=== PATIENT | female | born 1955 | race Caucasian/White ===

== ENCOUNTER 2020-09-28 07:13 | Outpatient (CLI) | payer MEDICARE ==
[2020-09-28 16:19] LABS: Bilirubin Neg (Negative); Blood, Urine Negative (Negative); Clarity Clear (Clear); Glucose, Urine (Dipstick) Normal (Negative); Ketone, Urine Negative (Negative); Leukocyte Negative (Negative); Nitrite Negative (Negative); Protein, Urine (Dipstick) Negative (Neg-Trace); Urobilinogen Normal mg/dL (Less than 2)
[2020-09-28 16:21] LABS: #Basophils 0.1 10x3/uL (0.0-0.2); #Eosinphils 0.2 10x3/uL (0.0-0.5); #Monocytes 0.7 10x3/uL (0.0-1.1); %Basophils 0.9 % (0.0-2.0); %Eosinophils 2.6 % (0.0-6.0); %Lymphocytes 28.2 % (18.0-47.0); %Monocytes 10.3 % (0.0-10.0); %Neutrophils 57.9 % (40.0-75.0); Hemoglobin 12.7 g/dL (12.0-16.0); Mean Corpuscular HGB CONC 32.5 G/DL (32.0-36.0); Mean Corpuscular Hemoglobin 30.2 PG (27.0-33.0); Mean Corpuscular Volume 92.9 fl (80.0-100.0); Mean Platelet Volume 11.2 fl (7.4-10.4); Platelet Count 271 10x3/uL (130-400); RBC Distribution Width 13.1 % (11.5-14.5); Red Blood Cell (RBC) Count 4.21 10x6/uL (3.90-5.20)
[2020-09-28 16:52] LABS: RBC/HPF None Seen HPF (0-3)
[2020-09-28 16:53] LABS: Bacteria/HPF None Seen HPF (None Seen); Squamous Epithelial 0-3 HPF (0-3); WBC/HPF None Seen HPF (0-3)
[2020-09-29 03:02] LABS: SARS-CoV-2 MS2 Positive; SARS-CoV-2 N Gene Negative; SARS-CoV-2 S Gene Negative; SARS-CoV-2 by NAA Not Detected (NotDetected); SARS-CoV-2 orf1ab Negative
--- NOTE | 2020-09-30 07:04 | EKG ---
Test Reason : Blood Pressure : / mmHG Vent. Rate : 077 BPM Atrial Rate : 077 BPM P-R Int : 146 ms QRS Dur : 074 ms QT Int : 380 ms P-R-T Axes : 071 076 066 degrees QTc Int : 430 ms Sinus rhythm with Premature supraventricular complexes Otherwise normal ECG No previous ECGs available Confirmed by DR. Luc SANTILLAN ([id number]) on 09/30/2020 7:03:40 AM Referred By: SONNY Confirmed By:DR. Luc SANTILLAN
== END 2020-09-28 07:14 | disposition home or self-care (01) ==
LOC: LABBT 07:13
PROVIDERS: ATTEND Orthopaedic Surgery Hand Surgery
DX: Z01.818 Encounter for other preprocedural examination (principal); S62.633A Displaced fracture of distal phalanx of left middle finger, initial encounter for closed fracture; Z20.828 Contact with and (suspected) exposure to other viral communicable diseases
CPT/HCPCS: 81001; 85025; U0003; 87635; 93005; 93010

== ENCOUNTER 2020-10-01 11:31 | Day surgery (SDC) | payer MEDICARE ==
[2020-09-29 12:42] VITALS: BMI 20.2
[~2020-10-01 11:31] MED LIST: Dexamethasone 20 MG/5 ML VIAL ONE; Lidocaine 1% PF 5 ML VIAL ONE; Ondansetron PF 4 MG/2 ML Vial ONE; PROPOFOL 200 MG/20 ML VIAL ONE; ePHEDrine 50 MG/ML VIAL ONE
[2020-10-01] MEDS ORDERED: Fentanyl 100 MCG/2 ML VIAL ONE ×2 (12:44→14:20)
[2020-10-01] MEDS ORDERED: Midazolam HCl 2 mg/2 ml Vial ONE ×2 (12:44→14:20)
[2020-10-01] MEDS ORDERED: Bupivacaine PF 0.5% 30 ML VIAL ONE (14:15)
[2020-10-01] MEDS ORDERED: Bacitracin Zinc Ointment 30 gm TUBE ONE (14:19)
[2020-10-01] MEDS ORDERED: Sodium Chloride 0.9% 10 ML ONE (14:45)
[2020-10-01] MEDS ORDERED: Ketorolac Tromethamine 30 MG/ML VIAL ONE (17:49)
--- NOTE | 2020-10-01 17:55 | RAD ---
EXAM: LEFT THIRD FINGER THREE VIEWS: 10/01/20 HISTORY: Injury, status post ORIF. COMPARISON: 09/14/20. FINDINGS/IMPRESSION: Multiple portable fluoroscopic spot images demonstrate placement of metal plate and screws stabilizin g a markedly comminuted, and markedly displaced fracture of the distal phalanx of the middle finger. POS: RRE
--- NOTE | 2020-10-03 08:29 | OP ---
DATE OF PROCEDURE: 10/01/2020 PREOPERATIVE DIAGNOSIS: Left type 4 Jessica and [place] middle finger [place] fracture, three-part, and dislocation of the distal phalangeal joint, now over two months old. 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 PROCEDURES PERFORMED: 1. Open reduction and internal fixation of distal phalanx fracture, intra-articular. 2. Open reduction and internal fixation of distal phalangeal joint dislocation, greater than two months old. 3. C-arm supervision. SPECIMEN REMOVED: None. TOURNIQUET TIME: 120 minutes. ESTIMATED BLOOD LOSS: Less than or equal to 10 mL. INJECTABLE: A total of 25 mL of 0.5% Marcaine, 15 given at metacarpophalangeal joint level prior to procedure and 10 after the wound was closed. 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 She initially thought it was "jammed" and then when she presented, we showed her she had a three-part fracture where the flexor tendon was possibly completely and that the fracture was intra-articularly displaced and it was actually a dislocation. She also has a history of osteoporosis. Thus, these all will make this care very difficult. Please add a 22 modifier for difficulty. DESCRIPTION OF PROCEDURE: After successful general LMA technique, the limb was prepped and draped. We tried a closed reduction, this failed. We then exsanguinated the limb after giving her 15 mL of 0.5% Marcaine block without epinephrine, carried through skin and subcutaneous tissue with the Arnie incision beginning across the distal phalangeal joint all on the ulnar side. We then identified neurovascular bundle both sides, protected, dissected down to the fracture and we saw the extensor tendon was over 75% still attached and thus was available for reduction and repair as needed. We used C-arm to slowly separate the proximal palmar fracture which represented over 60% articular surface at the frontal sagittal plane. The dorsal piece appeared to be partially healed, and there was early callus seen and so we first had to take down the callus in appropriate plane of the fracture line. Irrigated. Reconstructed the joint using a 3-0 Prolene suture and a Capay stitch in the tendon, drilling this in appropriate length from the joint at oblique angle through the base of the nail bed and tying this with finger flexed over a button. Once this was done, we reduced the joint dislocation and the fracture except for, maybe, 1 mm separation at the articular surface and 0.5 mm distally. We then initially tried to place a T-plate with all screw holes but noticed that she was osteoporotic in the proximal one-third so we had to abandon this, regroup, used a different plate and screw size, and then we best fit the plate with 2 screws distal to the fracture on 4 cortices and 4 cortices using 2 K-wires as well as one screw proximal to the fracture. With this configuration, the joint line was reduced anatomically, and there was no dislocation seen. The patient then had the screw length changed on two screws because they were too long underneath the nail bed. We also released the tourniquet, obtained hemostasis, and final radiographs showed anatomic position. The flexor tendon remained with the proximal fragment volar base. With the tourniquet deflated, hemostasis was obtained. We had 1 second capillary refill and the digit was pink. There was no early swelling. The patient's digit had flexion added to the DIP joint of 20 degrees of flexion. We then gently closed the wound after cleaning the digit with interrupted 5-0 nylon in a simple pattern and the patient left the operating room without evidence of anesthetic or operative complication. Job ID: [id number]
== END 2020-10-01 19:07 | disposition home or self-care (01) ==
LOC: SDC 11:31
PROVIDERS: ATTEND Orthopaedic Surgery Hand Surgery
PROC: 0PSV04Z Reposition Left Finger Phalanx with Internal Fixation Device, Open Approach (ICD-10-PCS; principal; 2020-10-01)
DX: S62.633A Displaced fracture of distal phalanx of left middle finger, initial encounter for closed fracture (principal); M24.842 Other specific joint derangements of left hand, not elsewhere classified; E78.00 Pure hypercholesterolemia, unspecified; M81.0 Age-related osteoporosis without current pathological fracture; E78.5 Hyperlipidemia, unspecified; Z79.899 Other long term (current) drug therapy; Z88.7 Allergy status to serum and vaccine; Z91.010 Allergy to peanuts; Z91.012 Allergy to eggs; Z91.018 Allergy to other foods; X50.0XXA Overexertion from strenuous movement or load, initial encounter
CPT/HCPCS: 76000; J0690; J1100; J1885; J2250; J2405; J2704; J3010; J3490; S0020

== ENCOUNTER 2021-12-02 10:12 | Outpatient (CLI) | payer MEDICARE ==
[2021-12-02 11:50] LABS: Bilirubin Neg (Negative); Blood, Urine Negative (Negative); Clarity Clear (Clear); Glucose, Urine (Dipstick) Normal (Negative); Ketone, Urine Negative (Negative); Leukocyte Negative (Negative); Nitrite Negative (Negative); Protein, Urine (Dipstick) Negative (Neg-Trace); Urobilinogen Normal mg/dL (Less than 2)
[2021-12-02 12:01] LABS: #Basophils 0.1 10x3/uL (0.0-0.2); #Eosinphils 0.3 10x3/uL (0.0-0.5); #Monocytes 0.8 10x3/uL (0.0-1.1); %Basophils 0.9 % (0.0-2.0); %Eosinophils 4.2 % (0.0-6.0); %Lymphocytes 34.7 % (18.0-47.0); %Monocytes 12.7 % (0.0-10.0); %Neutrophils 47.3 % (40.0-75.0); Hemoglobin 13.2 g/dL (12.0-15.5); Mean Corpuscular HGB CONC 32.5 g/dL (32.0-36.0); Mean Corpuscular Hemoglobin 30.1 pg (27.0-33.0); Mean Corpuscular Volume 92.5 fl (81.6-98.3); Mean Platelet Volume 10.4 fl (7.4-10.4); Platelet Count 304 10x3/uL (150-450); RBC Distribution Width 12.9 % (11.5-14.5); Red Blood Cell (RBC) Count 4.39 10x6/uL (3.90-5.03); White Blood Cell (WBC) Count 6.4 10x3/uL (3.5-10.5)
[2021-12-02 12:13] LABS: Anion Gap 16 mmol/L (10-20); BUN (Urea Nitrogen) 21 mg/dL (9.8-20.1); Calc. Creatinine Clearance 0 mL/min (70-130); Calcium 9.9 mg/dL (7.8-10.44); Carbon Dioxide 27 mmol/L (23-31); Chloride 97 mmol/L (98-107); Glucose 85 mg/dL (80-115); Potassium 4.2 mmol/L (3.5-5.1); Sodium 136 mmol/L (136-145)
[2021-12-03 00:13] LABS: SARS-CoV-2 PCR by NAA Not Detected (NotDetected)
== END 2021-12-02 10:13 | disposition home or self-care (01) ==
LOC: LABBT 10:12
PROVIDERS: ATTEND Orthopaedic Surgery Hand Surgery
DX: Z01.818 Encounter for other preprocedural examination (principal); B49 Unspecified mycosis; Z20.822 Contact with and (suspected) exposure to COVID-19
CPT/HCPCS: 80048; 81003; 85025; 93005; U0003; U0005; 93010

== ENCOUNTER 2021-12-06 05:50 | Day surgery (SDC) | payer MEDICARE ==
[2021-11-25 14:35] VITALS: BMI 20.4
[2021-12-06] MEDS ORDERED: Neomycin-Polymyxin 1 ML AMP ONE (06:25)
[2021-12-06] MEDS ORDERED: Bupivacaine PF 0.5% 30 ML VIAL ONE (06:25)
[2021-12-06] MEDS ORDERED: Betamet Acet/Betamet Na Ph 30 MG/5 ML VIAL ONE (06:25)
[2021-12-06] MEDS ORDERED: Bacitracin Zinc Ointment 30 gm TUBE ONE (06:25)
[2021-12-06] MEDS ORDERED: Propofol 500 MG/50 ML VIAL ONE (07:11)
[2021-12-06] MEDS ORDERED: ceFAZolin 2 GM/Dextrose 50 ML IVPB ONE (07:11)
== END 2021-12-06 10:12 | disposition home or self-care (01) ==
LOC: SDC 05:50
PROVIDERS: ATTEND Orthopaedic Surgery Hand Surgery
PROC: 0HBQXZX Excision of Finger Nail, External Approach, Diagnostic (ICD-10-PCS; principal; 2021-12-06)
PROC: 0HDQXZZ Extraction of Finger Nail, External Approach (ICD-10-PCS; 2021-12-06)
DX: B35.1 Tinea unguium (principal); S61.303A Unspecified open wound of left middle finger with damage to nail, initial encounter; G90.512 Complex regional pain syndrome I of left upper limb; E78.00 Pure hypercholesterolemia, unspecified; M81.0 Age-related osteoporosis without current pathological fracture; Z79.82 Long term (current) use of aspirin; Z79.899 Other long term (current) drug therapy; Z88.1 Allergy status to other antibiotic agents; Z88.6 Allergy status to analgesic agent; Z88.7 Allergy status to serum and vaccine; Z91.010 Allergy to peanuts; Z91.018 Allergy to other foods
CPT/HCPCS: 71046; 87102; 87206; 87220; 88305; 88312; J0690; J0702; J2704; S0020